=== PATIENT | male | born 1995 | race Asian ===

== ENCOUNTER 2024-03-01 19:24 | Emergency (ER) | payer MEDICAID ==
[~2024-03-01] VITALS: Ht 185.4 cm; Wt 109.1 kg
[2024-03-01 19:27] VITALS: BP 147/74; PULSE 74; RESP 16; TEMP 97.8; O2SAT 99
[2024-03-01] MEDS: proparacaine 0.5% ophthalmic drops 15ml EACHEYE ONE (21:08)
[2024-03-01] MEDS ORDERED: POLOS RIGHTEYE (21:26)
== END 2024-03-01 21:44 | disposition home or self-care (01) ==
LOC: ER 19:25
DX: H57.8A1 Foreign body sensation, right eye (principal)
CPT/HCPCS: 99283